=== PATIENT | male | born 1975 | race Caucasian/White ===

== ENCOUNTER 2019-11-02 07:20 | Day surgery (SDC) | payer BC ==
[2019-11-01 15:21] LABS: ALBUMIN 3.1 g/dL (3.4-5.0); ANION GAP 4 mmol/L (5-15); CALCIUM 9.1 mg/dL (8.5-10.1); CHLORIDE 108 mmol/L (98-107); CREATININE 1.45 mg/dL (0.7-1.3)
[2019-11-01 15:31] LABS: ALANINE AMINOTRANSFERASE 11 U/L (12-78); ALKALINE PHOSPHATASE 76 U/L (45-117); BILIRUBIN,TOTAL 0.2 mg/dL (0.2-1.0); TOTAL PROTEIN 8.1 g/dL (6.4-8.2)
[~2019-11-02] VITALS: Ht 180.3 cm; Wt 143.9 kg
[~2019-11-02 07:20] MED LIST: ACET325T26 PO; CITA20TA6 PO; COLE625T12 PO; DULA1.5P INJ; EMPA25TA PO; ERGO500017 PO; ERTU5TAB PO; EXEN2PEN SQ; FENO40TA4 PO; GABA300C10 PO; HYDR-3341 PO; INSU100C5 SQ-INSULIN; INSU100I11 SQ-INSULIN; INSU100I13 SQ; INSU100I13 SQ-INSULIN; PIOG45TA63 PO; PIOG45TA64 PO
[2019-11-02] MEDS ORDERED: LIDOCAINE-MPF 1%, 2ML ONE (08:03)
[2019-11-02] MEDS ORDERED: PROPOFOL 10 MG/ML, 20ML ONE ×2 (08:11)
[2019-11-02] MEDS ORDERED: MIDAZOLAM 1 MG/ML, 2ML ONE (08:11)
[2019-11-02] MEDS ORDERED: FENTANYL PF 100 MCG/2ML ONE (08:11)
[2019-11-02] MEDS ORDERED: LIDOCAINE-MPF 2% ,5ML ONE (08:11)
[2019-11-02] MEDS ORDERED: SUCCINYLCHOLINE 20 MG/ML, 10ML ONE (08:12)
[2019-11-02] MEDS: LACTATED RINGERS 1,000 ML IV SCH ×2 (08:17→10:28)
[2019-11-02 08:30] VITALS: BP 157/87
[2019-11-02] MEDS ORDERED: LIDOCAINE-MPF 1%, 2ML INFIL ONE (08:30)
[2019-11-02] MEDS ORDERED: CHLORHEXIDINE 15 ML UDC MM ONE (08:30)
[2019-11-02] MEDS ORDERED: CEFAZOLIN 1,000 MG ONE (10:42)
[2019-11-02] MEDS ORDERED: ONDANSETRON 2MG/ML, 2ML ONE (10:42)
[2019-11-02] MEDS ORDERED: BUPIVACAINE/PF-EPI 0.5% 1:200K INFIL ONE (10:57)
[2019-11-02] MEDS ORDERED: MEPERIDINE/PF 25MG/0.5ML IVPush PRN (11:00)
[2019-11-02] MEDS ORDERED: HYDROcodone/APAP 7.5-325MG/15ML UDC PO PRN (11:00)
[2019-11-02] MEDS ORDERED: PROMETHAZINE 25 MG/ML, 1ML IVPush PRN (11:00)
[2019-11-02] MEDS ORDERED: FENTANYL PF 100 MCG/2ML IV PRN (11:00)
[2019-11-02] MEDS ORDERED: morphine SULFATE 10 MG/ML, 1ML IVPush PRN (11:00)
== END 2019-11-02 13:15 | disposition home or self-care (01) ==
LOC: OUT 07:20 → EDSTATUS 09:30 → OUT 13:15
PROVIDERS: ATTEND Podiatrist Foot & Ankle Surgery
DX: M21.6X1 Other acquired deformities of right foot (principal); Z11.59 Encounter for screening for other viral diseases; E11.621 Type 2 diabetes mellitus with foot ulcer; L97.512 Non-pressure chronic ulcer of other part of right foot with fat layer exposed; E11.42 Type 2 diabetes mellitus with diabetic polyneuropathy; E66.01 Morbid (severe) obesity due to excess calories; Z68.39 Body mass index [BMI] 39.0-39.9, adult; Z79.4 Long term (current) use of insulin; Z79.899 Other long term (current) drug therapy; Z88.2 Allergy status to sulfonamides; Z91.041 Radiographic dye allergy status
CPT/HCPCS: 15275; 27685; 36415; 80053; 82962; 93005; J0330; J0690; J2250; J2405; J2704; J3010; J7120; Q4160; U0001; C1762